=== PATIENT | male | born 1945 | race Hispanic/Latino ===

== ENCOUNTER 2024-06-26 17:57 | Inpatient (IN) | payer OTHER ==
--- OUTSIDE RECORDS SUMMARY | 2024-06-26 18:00 | XMS REPORT | Continuity of Care Document ---
Author Name Unknown Address [address] [facility] [address] [place] [address] [facility] Address [address] [facility] 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 Ordering Clinician Indication Dosage Frequency Signature (SIG) Comments Components Source Omeprazole 20 MG Omeprazole 20 MG No Omeprazole 20 MG Encounters Start Date/Time End Date/Time Encounter Type Admission Type Attending Clinicians Care Facility Care Department Encounter ID Source 2024-02-13 11:32:00 Outpatient Nimesh Monroe [facility] [id number] [facility] 2024-01-19 11:27:02 Outpatient Nimesh Monroe [facility] [id number] [facility] [employer] 2024-03-29 00:00:00 2024-03-29 00:00:00 Office Visit- Est Pt.- Level 3 [facility] [id number] [facility] [employer] 2024-03-08 00:00:00 2024-03-08 00:00:00 (F/U) Follow Up Visit [facility] [id number] [facility] [employer] [employer] 2024-02-21 00:00:00 2024-02-21 00:00:00 (F/U) Follow Up Visit [facility] [id number] [facility] [employer] [employer] 2024-02-02 00:00:00 2024-02-02 00:00:00 (F/U) Follow Up Visit [facility] [id number] [employer] [facility] [employer] 2024-01-19 00:00:00 2024-01-19 00:00:00 Office Visit- New Pt.- Level 4 [facility] [id number] [facility] [employer] [facility]
--- NOTE | 2024-06-26 18:28 | RAD REPORT ---
EXAM: Chest Single View HISTORY: COUGH COMPARISON: None. FINDINGS: LUNGS/PLEURA: The lungs are clear. No pleural effusions or pneumothorax. No pulmonary edema. MEDIASTINUM: Hiatal hernia. CARDIAC: The cardiac silhouette is within normal limits. UPPER ABDOMEN: No significant abnormality. BONES: No acute abnormality. LINES/TUBES/OTHER: N/A IMPRESSION: No evidence of acute cardiopulmonary disease.
[2024-06-26 18:41] LABS: Absolute Basophils 0.1 K/uL (0-0.5); Absolute Eosinophils 0.1 K/uL (0-0.5); Absolute Monocytes 0.9 K/uL (0.1-1.3); Absolute Neutrophil 4.9 K/uL (1.8-8.0); Eosinophils % 1.5 % (0-4.4); Hematocrit 45.5 % (39.6-49.0); Hemoglobin 15.8 g/dL (13.6-17.9); MCH 32.4 pg (27.0-35.0); MCHC 34.8 g/dL (32.0-36.0); MCV 93.3 fL (80-100); Monocytes % 10.9 % (3.3-12.3); Neutrophils % 61.6 % (41.7-73.7); Nucleated Red Blood Cells % 0.1 % (0-0); Platelets 206 thou/uL (152-406); RBC Red Blood Cell Count 4.88 M/uL (4.33-5.43); Red Cell Distribution Width 12.9 % (12.1-15.2)
[2024-06-26 18:46] LABS: PT Prothrombin Time 11.6 SECONDS (9.4-12.5); PTT, Activated Partial Thromb 34.2 SECONDS (24.3-36.9); Protime INR 1.11
[2024-06-26 18:54] LABS: Anion Gap 9.8 mEq/L (5.0-15.0); Potassium 3.8 mEq/L (3.5-5.1); Troponin High Sensitivity 4.4 pg/mL (<58.9)
[2024-06-26 19:02] LABS: Specific Gravity 1.018 (1.005-1.030); Sqamous Epithelial None Seen /HPF (None Seen); Urine Bacteria None Seen /HPF (<20); Urine Bilirubin NEGATIVE (Negative); Urine Blood Negative (Negative); Urine Clarity Clear (Clear); Urine Color Light-Yellow (Yellow); Urine Culture Reflex Order NOT NEEDED; Urine Glucose NEGATIVE (Negative); Urine Ketones NEGATIVE (Negative); Urine Micro Reflex YN NO BILL MICROSCOPIC; Urine Mucus Slight /HPF (None Seen); Urine Nitrite NEGATIVE (Negative); Urine Protein NEGATIVE (Negative); Urine RBC <5 /HPF (None Seen); Urine Urobilinogen Normal (Normal); Urine WBC <5 /HPF (<5)
--- NOTE | 2024-06-26 19:35 | RAD REPORT ---
EXAMINATION: CT HEAD WITHOUT CONTRAST CLINICAL INDICATION: Male, 78 years old.L sided numbness TECHNIQUE: Axial CT images from the skull base to the vertex without intravenous contrast. Coronal an d sagittal reformatted images were created from the data set. One or more of the following dose reduction techniques were used: Automated exposure control, adjustment of the mA and/or kV according to patient size, and/or iterative reconstruction. Unless otherwise specified, incidental findings do not require dedicated imaging follow-up. [id number]. COMPARISON: No prior exam. FINDINGS: INTRACRANIAL: No acute intracranial hemorrhage. No hydrocephalus. Septal malacia in left frontal lobe likely from remote infarct. Mild chronic small vessel ischemic changes.Mild cerebral atrophy. There are some low-density foci within the cerebellar hemispheres which may represent remote infarcts . VASCULATURE: No visualized abnormalities in the arteries or dural venous sinuses. SCALP/SKULL: No significant soft tissue or osseous abnormalities. SINUSES: The visualized paranasal sinuses and mastoid air cells are predominantly clear. IMPRESSION: No acute intracranial abnormality. Remote appearing left frontal lobe infarct. Small foci of hypoatte nuation in the cerebellar hemisphere likely remote infarcts. MRI could confirm.
--- NOTE | 2024-06-26 19:37 | RAD REPORT ---
EXAMINATION: CTA NECK CLINICAL INDICATION: Male, 78 years old. L sided numbness TECHNIQUE: Axial CT images were obtained from the aortic arch to the skull base after intravenous con trast utilizing angiographic protocol with 3D post-processing (maximum intensity projection images, volume rendered images and/or shaded surface rendered images). One or more of the following dose redu ction techniques were used: Automated exposure control, adjustment of the mA and/or kV according to patient size, and/or iterative reconstruction. Unless otherwise specified, incidental findings do not require dedicated imaging follow-up. [id number]. NASCET criteria used. Mild 0-49% stenosis Moderate 50-69% stenosis Severe 70-99% stenosis COMPARISON: No prior exam. FINDINGS: AORTA: The imaged aortic arch is normal. CCA: The common carotid arteries are patent and normal in caliber. ICA/ECA: Bilateral internal and external carotid arteries are patent. There is no significant interna l carotid artery stenosis. Where applicable, degree of stenosis is measured using NASCET-like criteria. VERTEBRAL: Patent. Right dominant. SOFT TISSUE: No significant neck soft tissue abnormalities. The visualized lung apices are clear. 3D images confirm these findings. IMPRESSION: No stenosis or dissection identified within the neck.
--- NOTE | 2024-06-26 19:40 | RAD REPORT ---
EXAMINATION: CTA HEAD CLINICAL INDICATION: Male, 78 years old. L sided numbness TECHNIQUE: Axial CT images were obtained through the head after intravenous contrast utilizing angiog raphic protocol with 3D post-processing (maximum intensity projection images, volume rendered images and/or shaded surface rendered images). One or more of the following dose reduction technique s were used: Automated exposure control, adjustment of the mA and/or kV according to patient size, and/or iterative reconstruction. Unless otherwise specified, incidental findings do not require dedic ated imaging follow-up. COMPARISON: No prior exam. FINDINGS: ICA: The petrous, cavernous, and supraclinoid segments of the bilateral internal carotid arteries are normal. The ophthalmic artery origins are visualized and normal. The posterior communicating arteries are patent. YEMI: Anterior cerebral arteries are normal bilaterally. The anterior communicating artery is patent. MCA: Middle cerebral arteries are normal bilaterally. ROAD HOGGER OPERATOR: Posterior cerebral arteries are normal bilaterally. Vertebrobasilar: The vertebral arteries are patent. The basilar artery is normal in appearance. Right dominant vertebral artery. 3D images confirm these findings. IMPRESSION: No occlusion, aneurysm, or hemodynamically significant stenosis identified.
[2024-06-26] MEDS ORDERED: ASPIRIN 81 MG CHEWABLE TABLET ONE (19:45)
--- NOTE | 2024-06-26 19:46 | EDPHYS ---
Physician Documentation [facility] Name: Nixon Currie Age: 78 yrs Sex: Male : 1945 Arrival Date: 06/26/2024 Time: 17:57 Bed 13 Private MD: ED Physician Sunny Brambila HPI: 06/26 18:21 This 78 yrs old Male presents to ER via Ambulatory with complaints of Fall ec2 Injury, Numbness Of Arm - Left. 18:21 Patient arrives today for evaluation of left upper and left lower extremity numbness. ec2 Last known well of last night. Woke up this morning, states that he felt numb in the left lower extremity and had fallen down. No LOC, no head strike, no head pain, no neck pain. No significant medical problems, no cardiac history. No previous stroke history. Not on blood thinners. Reports that he feels back to near baseline.. Historical: - Allergies: 18:14 No Known Allergies; cm10 - PMHx: 18:14 None; cm10 - PSHx: 18:14 Cholecystectomy; cm10 - Immunization history:: Adult Immunizations up to date. - Infectious Disease History:: Denies. - Social history:: Smoking status: Patient denies any tobacco usage or history of. ROS: 18:21 Constitutional: as per hpi ec2 Exam: 18:21 Constitutional: GEN: NAD Head: atraumatic Eyes: EOMI Ears: External ears are ec2 normal. CV: regular rate LUNGS: no respiratory distress ABD: non-distended SKIN: no evidence of rashes MSK: no evidence of trauma. Neuro: Cranial nerves II through XII intact, strength intact all 4 extremities, sensation intact throughout. Vital Signs: 18:12 BP 142 / 73; Pulse 63; Resp 15; Temp 97.4(O); Pulse Ox 96% on R/A; Weight 79.38 kg; cm10 Height 5 ft. 7 in. ; Pain 0/10; 18:30 BP 125 / 80; Pulse 68; Resp 16; Pulse Ox 99% ; me1 19:00 BP 122 / 73; Pulse 58; Resp 15; Pulse Ox 94% ; me1 20:00 BP 130 / 80; Pulse 54; Resp 15; Pulse Ox 96% on R/A; me1 21:00 BP 124 / 83; Pulse 52; Resp 15; Pulse Ox 95% ; me1 22:00 BP 133 / 77; Pulse 56; Resp 17; Pulse Ox 94% ; me1 23:00 BP 127 / 79; Pulse 51; Resp 15; Pulse Ox 97% ; me1 18:12 Body Mass Index 27.41 (79.38 kg, 170.18 cm) cm10 18:12 Pain Scale: Adult cm10 NIH Stroke Scale Scores: 18:10 NIHSS Score: 0 [facility] MDM: 18:04 Medical Screening Exam initiated ec2 18:22 Data reviewed: vital signs, nurses notes. ED course: Patient arrives today for ec2 evaluation of left upper and lower extremity numbness. Examination yields well-appearing nontoxic individuals otherwise in no acute distress with a reassuring examination without focal deficits appreciated. Will obtain cardiac workup as well as neurological workup. Patient would not be an appropriate TNK candidate given the patient's timeframe and improved symptoms.. 19:02 ED course: EKG independently reviewed and interpreted by me, shows normal sinus rhythm, ec2 rate of 55, no acute ST segment elevations, intervals are nonactionable.. 19:17 ED course: Metabolic profile reassuring. CBC reassuring. Coagulation profile is ec2 nonactionable, troponin is within normal ranges. Chest x-ray shows no acute intrathoracic process. Urine is noninfectious appearing. Pending CT imaging.. 19:45 ED course: CT angio and CT neck are negative. CT scan of the head shows remote left ec2 frontal lobe infarct along with hypoattenuation in the cerebellar hemisphere. Given the patient's symptoms, I suspect these are consistent with stroke. Will admit for neurology and further MR. Discussed with hospitalist, pending admission.. 06/26 18:12 Order name: Basic Metabolic Panel; Complete Time: 19:17 ec2 06/26 18:12 Order name: CBC with Diff; Complete Time: 19:17 ec2 06/26 18:12 Order name: PT-INR; Complete Time: :17 ec2 06/26 18:12 Order name: Troponin HS; Complete Time: :17 ec2 06/26 18:12 Order name: Ptt, Activated; Complete Time: 19:17 ec2 06/26 18:12 Order name: UAM; Complete Time: : ec2 06/26 22:00 Order name: CBC with Automated Diff EDMS 06/26 22:00 Order name: CBC with Automated Diff; Complete Time: 14:03 EDMS 06/26 22:00 Order name: Comprehensive Metabolic Panel EDIN 06/26 22:00 Order name: Comprehensive Metabolic Panel; Complete Time: 14:03 EDMS 06/26 22:00 Order name: Lipid Profile EDMS 06/26 22:00 Order name: Lipid Profile; Complete Time: 14:03 MS 06/26 22:47 Order name: Glucose, Ancillary Testing; Complete Time: 14:03 [facility] 06/27 06:35 Order name: Hemoglobin A1c; Complete Time: 14:03 EDMS 06/27 07:27 Order name: Glucose, Ancillary Testing; Complete Time: 14:03 [facility] 06/26 18:12 Order name: XRAY Chest (1 view); Complete Time: 19:17 ec2 06/26 18:12 Order name: CT Head Angio; Complete Time: 19:43 2 06/26 18:12 Order name: CT Neck Angio; Complete Time: 19:40 2 06/26 18:12 Order name: CT Head Brain wo Cont; Complete Time: 19:40 ec2 06/26 22:00 Order name: Brain Wo Cont EDIN 06/26 22:01 Order name: Echo with Doppler EDIN 06/27 12:14 Order name: MRI; Complete Time: 14:03 [facility] 06/26 18:12 Order name: EKG; Complete Time: 18:13 ec2 06/26 22:00 Order name: IRF Screen EDIN 06/26 22:00 Order name: Physical Therapy Consult EDIN 06/26 18:12 Order name: Cardiac monitoring; Complete Time: 19:01 2 06/26 18:12 Order name: EKG - Nurse/Tech; Complete Time: 19:01 2 06/26 18:12 Order name: IV Saline Lock; Complete Time: 18:52 ec2 06/26 18:12 Order name: Labs collected and sent; Complete Time: 18:52 ec2 06/26 18:12 Order name: O2 Per Protocol; Complete Time: 18:52 ec2 06/26 18:12 Order name: O2 Sat Monitoring; Complete Time: 18:52 ec2 Administered Medications: 19:52 Drug: Aspirin PO Chewable Tablet 324 mg PO once; 81 mg tablets x 4 Route: PO; me1 19:58 Follow up: Response: No adverse reaction me1 Disposition Summary: 06/26/24 19:45 Hospitalization Ordered Notes: Hospitalization Status: Inpatient Admission ec2 Provider: Wagner Gandara ec2 Condition: Stable ec2 Problem: new ec2 Symptoms: are unchanged ec2 Bed/Room Type: Standard ec2 Location: Telemetry/MedSurg (observation)(06/27/24 14:02) 6 Room Assignment: [facility](06/27/24 14:02) [facility] Diagnosis - Ischemic Stroke ec2 Discharge Instructions: - Discharge Summary Sheet me1 Forms: - Medication Reconciliation Form ec2 - SBAR form ec2 - Leadership Thank You Letter ec2 NIH Stroke Scale - NIH Stroke Score Date: 06/26/2024 Time: 18:10 Total Score = 0 10. Dysarthria (speech clarity - read or repeat words) - 0(Normal) 11. Extinction and Inattention (visual/tactile/auditory/spatial/personal) - 0(No abnormality) 1a. Level of Consciousness (LOC) - 0(Alert) 1b. Level of Consciousness (LOC) (Month \T\ Age) - 0(Both) 1c. LOC Commands (Open \T\ Closes Eyes/Mail Reader) - 0(Both) 2. Best Gaze (Lateral Gaze Paresis) - 0(Normal) 3. Visual Field Loss - 0(No visual loss) 4. Facial Palsy - 0(Normal) 5a. Left Arm: Motor (10-second hold) - 0(No drift) 5b. Right Arm: Motor (10-second hold) - 0(No drift) 6a. Left Leg: Motor (5-second hold - always test supine) - 0(No drift) 6b. Right Leg: Motor (5-second hold - always test supine) - 0(No drift) 7. Limb Ataxia (finger/nose \T\ heel/aldrcih - test with eyes open) - 0(Absent) 8. Sensory Loss (pinprick arms/legs/face) - 0(Normal) 9. Best Language: Aphasia (description/naming/reading) - 0(No aphasia) Initials: me1 Signatures: Dispatcher [employer] Mayte Nowak rv1 Melinda Bright 6 Meenu Connelly RN RN cm10 Aimee Hale RN RN me1 Sunny Brambila MD MD 2 Corrections: (The following items were deleted from the chart) 18:21 18:21 Patient arrives today for evaluation of left upper and left lower ec2 extremity numbness. Last known well of last night. Woke up this morning, states that he felt numb in the left lower extremity and had fallen down. No LOC, no head strike, no head pain, no neck pain. No significant medical problems, no cardiac history. No previous stroke history. Not on blood thinners.. ec2 19:50 19:45 Telemetry/MedSurg (Inpatient) ec2 rv1 19:50 19:45 ec2 rv1 06/27 14:02 06/26 19:50 [facility] ER HOLD rv1 6 06/27 14:02 06/26 19:50 ERHOLD- [facility]
--- NOTE | 2024-06-26 19:46 | ER ---
Nurse's Notes [facility] Name: Nixon Currie Age: 78 yrs Sex: Male : 1945 Arrival Date: 06/26/2024 Time: 17:57 Bed 13 Private MD: Diagnosis: Ischemic Stroke Presentation: 06/26 18:12 Chief complaint: Patient states: Woke up this morning and his left arm and left leg cm10 went numb and patient fell. Pt states that the numbness has resolved. Coronavirus screen: Client denies travel out of the [place] in the last 14 days. Ebola Screen: Patient denies travel to an Ebola-affected area in the 21 days before illness onset. Initial Sepsis Screen: Does the patient meet any 2 criteria? No. Patient's initial sepsis screen is negative. Does the patient have a suspected source of infection? No. Patient's initial sepsis screen is negative. Risk Assessment: Do you want to hurt yourself or someone else? Patient reports no desire to harm self or others. Onset of symptoms was June 26, 2024. 18:12 Method Of Arrival: Ambulatory cm10 18:12 Acuity: NI 3 cm10 Triage Assessment: 18:14 General: Appears in no apparent distress. comfortable, Behavior is calm, cooperative, cm10 appropriate for age. Pain: Denies pain. Neuro: No deficits noted. Level of Consciousness is awake, alert, obeys commands, Oriented to person, place, time, situation, Appropriate for age. Respiratory: No deficits noted. Airway is patent Respiratory effort is even, unlabored, Respiratory pattern is regular, symmetrical. Historical: - Allergies: 18:14 No Known Allergies; cm10 - PMHx: 18:14 None; cm10 - PSHx: 18:14 Cholecystectomy; cm10 - Immunization history:: Adult Immunizations up to date. - Infectious Disease History:: Denies. - Social history:: Smoking status: Patient denies any tobacco usage or history of. Screenin:10 [facility] ED Fall Risk Assessment (Adult) History of falling in the last 3 months, me1 including since admission No falls in past 3 months (0 pts) Confusion or Disorientation No (0 pts) Intoxicated or Sedated No (0 pts) Impaired Gait No (0 pts) Mobility Assist Device Used No (0 pt) Altered Elimination No (0 pt) Score/Fall Risk Level 0 - 2 = Low Risk Maintained a safe environment, Provided non-skid footwear, Hourly rounding (assess needs \T\ fall precautionary measures) done. Abuse screen: Denies threats or abuse. Nutritional screening: No deficits noted. Tuberculosis screening: No symptoms or risk factors identified. 18:10 [place] Swallow Protocol Exclusion Criteria: Unable to remain alert for testing: No NPO me1 for medical/surgical reason by provider order No Head-of-bed restricted <30 degrees Tracheostomy tube present No No thin liquids due to preexisting dysphagia/baseline modified diet thickened liquids No Exclusion Criteria Result: Proceed Brief Cognitive Screen What is your name? Normal, Where are you right now? Normal, What year is it? Normal. Oral Mechanism Examination Facial Symmetry: Normal, Motion: Normal, Lip Closure: Normal, Oral Mechanism Result: Normal. 3 oz Water Swallow Challenge: Pt able to drink all water without stopping, coughing, choking or throat clearing: Yes Result: PASS MD Notified: Sunny Brambila MD. Assessment: 18:10 General: Appears comfortable, well groomed, well developed, well nourished, Behavior is me1 calm, cooperative, appropriate for age, Reports Woke up this morning and his left arm and left leg went numb and patient fell. Pt states that the numbness has resolved. Pain: Denies pain. Neuro: Level of Consciousness is awake, alert, obeys commands, Oriented to person, place, time, situation, Appropriate for age Song [employer]ger are equal bilaterally Moves all extremities. Full function Gait is steady, Speech is normal, Facial symmetry appears normal, Pupils are PERRLA, Intact. Cardiovascular: Patient's skin is warm and dry. Respiratory: Airway is patent Respiratory effort is even, unlabored, Respiratory pattern is regular, symmetrical. GI: No signs and/or symptoms were reported involving the gastrointestinal system. : No signs and/or symptoms were reported regarding the genitourinary system. EENT: No signs and/or symptoms were reported regarding the EENT system. Derm: Skin is intact, is healthy with good turgor, Skin is pink, warm \T\ dry. Musculoskeletal: No signs and/or symptoms reported regarding the musculoskeletal system. Vital Signs: 18:12 BP 142 / 73; Pulse 63; Resp 15; Temp 97.4(O); Pulse Ox 96% on R/A; Weight 79.38 kg; cm10 Height 5 ft. 7 in. ; Pain 0/10; 18:30 BP 125 / 80; Pulse 68; Resp 16; Pulse Ox 99% ; me1 19:00 BP 122 / 73; Pulse 58; Resp 15; Pulse Ox 94% ; me1 20:00 BP 130 / 80; Pulse 54; Resp 15; Pulse Ox 96% on R/A; me1 21:00 BP 124 / 83; Pulse 52; Resp 15; Pulse Ox 95% ; me1 22:00 BP 133 / 77; Pulse 56; Resp 17; Pulse Ox 94% ; me1 23:00 BP 127 / 79; Pulse 51; Resp 15; Pulse Ox 97% ; me1 18:12 Body Mass Index 27.41 (79.38 kg, 170.18 cm) cm10 18:12 Pain Scale: Adult cm10 NIH Stroke Scale Scores: 18:10 NIHSS Score: 0 mt1 ED Course: 18:02 Patient arrived in ED. ec2 18:02 Sunny Brambila MD is Attending Physician. ec2 18:10 Patient has correct armband on for positive identification. Bed in low position. Call [facility] [place] in reach. Side rails up X2. Provided Education on: POC. Verbalized understanding.. Client placed on continuous cardiac and pulse oximetry monitoring. NIBP monitoring applied. nurse monitoring on. Pulse ox on. NIBP on. 18:10 No provider procedures requiring assistance completed. me1 18:11 Aimee Hale, RN is Primary Nurse. mt1 18:14 Triage completed. cm10 18:14 Arm band placed on right wrist. Patient placed in an exam room, on a stretcher. cm10 18:21 XRAY Chest (1 view) In Process Unspecified. EDMS 18:30 Initial lab(s) drawn, by mt, sent to lab. Inserted saline lock: 20 gauge in right mt1 antecubital area, using aseptic technique. 18:51 Radiology exam delayed due to lab results not completed at this time. (BUN/Creatinine). de 18:52 UAM Sent. mt1 18:52 Basic Metabolic Panel Sent. mt1 18:52 Troponin HS Sent. mt1 18:52 Urine collected: clean catch specimen, clear. mt1 19:02 EKG done, by ED staff, reviewed by Sunny Brambila MD. me1 19:29 CT Head Angio In Process Unspecified. EDMS 19:29 CT Neck Angio In Process Unspecified. EDMS 19:29 CT Head Brain wo Cont In Process Unspecified. EDMS 19:45 Wagner Gandara MD is Hospitalizing Provider. ec2 23:17 Patient admitted, IV remains in place. me1 Administered Medications: 19:52 Drug: Aspirin PO Chewable Tablet 324 mg PO once; 81 mg tablets x 4 Route: PO; me1 19:58 Follow up: Response: No adverse reaction me1 Medication: 18:10 VIS not applicable for this client. me1 Outcome: 19:45 Decision to Hospitalize by Provider. ec2 23:17 Admitted to ER Hold. [facility]. me1 23:17 Condition: stable 23:17 Instructed on the need for admit, 06/27 14:58 Patient left the ED. cm10 NIH Stroke Scale - NIH Stroke Score Date: 06/26/2024 Time: 18:10 Total Score = 0 10. Dysarthria (speech clarity - read or repeat words) - 0(Normal) 11. Extinction and Inattention (visual/tactile/auditory/spatial/personal) - 0(No abnormality) 1a. Level of Consciousness (LOC) - 0(Alert) 1b. Level of Consciousness (LOC) (Month \T\ Age) - 0(Both) 1c. LOC Commands (Open \T\ Closes Eyes/Website Programmer) - 0(Both) 2. Best Gaze (Lateral Gaze Paresis) - 0(Normal) 3. Visual Field Loss - 0(No visual loss) 4. Facial Palsy - 0(Normal) 5a. Left Arm: Motor (10-second hold) - 0(No drift) 5b. Right Arm: Motor (10-second hold) - 0(No drift) 6a. Left Leg: Motor (5-second hold - always test supine) - 0(No drift) 6b. Right Leg: Motor (5-second hold - always test supine) - 0(No drift) 7. Limb Ataxia (finger/nose \T\ heel/aldrich - test with eyes open) - 0(Absent) 8. Sensory Loss (pinprick arms/legs/face) - 0(Normal) 9. Best Language: Aphasia (description/naming/reading) - 0(No aphasia) Initials: me1 Signatures: Dispatcher [employer] EDMS Jeff Marcus Clarissa, RN RN cm10 Aimee Hale RN RN me1 Sunny Brambila MD MD ec2 Corrections: (The following items were deleted from the chart) 06/26 19:52 18:12 Chief complaint: Patient states: Woke up this morning and his left arm me1 and left leg went numb and patient fell. Pt states that the numbness has resolved. cm10
[2024-06-26] MEDS ORDERED: ACETAMINOPHEN 500 MG TAB PO PRN (21:54)
[2024-06-26] MEDS ORDERED: ONDANSETRON 4 MG/2 ML VIAL IV PRN (21:54)
--- NOTE | 2024-06-26 21:54 | P.HP ---
Certification for Inpatient Patient admitted to: Observation With expected LOS: <2 Midnights Practitioner: I am a practitioner with admitting privileges, knowledge of patient current condition, hospital course, and medical plan of care. Services: Services provided to patient in accordance with Admission requirements found in Title 42 Section 412.3 of the Code of Federal Regulations Patient History Date of Service: 06/26/24 Reason for admission: Left side numbness History of Present Illness: 78 yrs old Male with no significant past medical history other than GERD brought to ER with numbness and weakness of the left side of the ER body which started last night. Denies any chest pain or palpitations. No fever or chills. No nausea vomiting diarrhea. Patient noticed numbness of the left thumb which progressed to left side of the body. Denies any headache. No previous history of CAD or CVA or atrial fibrillation. Patient was assessed in the ER and is admitted for further management of possible CVA to rule out Allergies No Known Allergies Allergy (Unverified 06/26/24 21:29) Home medications list reviewed: Yes - Family History Family History: Reviewed- Non-Contributory - Social History Smoking Status: Never smoker Review of Systems 10-point ROS is otherwise unremarkable Physical Examination - Vital Signs Temperature: 98.2 F Blood Pressure: 132/70 Pulse: 88 Respirations: 18 Pulse Ox (%): 94 - Physical Exam General: Alert, In no apparent distress, Oriented x3 HEENT: Atraumatic, Normocephalic Neck: Supple, 2+ carotid pulse no bruit Respiratory: Clear to auscultation bilaterally, Normal air movement Cardiovascular: Regular rate/rhythm, Normal S1 S2 Capillary refill: <2 Seconds Gastrointestinal: Soft and benign, Non-distended, W/out hepatosplenomegaly Musculoskeletal: No clubbing, No swelling Integumentary: No rashes, No breakdown Neurological: Normal gait, Normal speech, Normal strength at 5/5 x4 extr, Cranial nerves 3-12 intact, Normal reflexes 2+, Normal affect Lymphatics: No axilla or inguinal lymphadenopathy - Studies Laboratory Data (last 24 hrs) 06/26/24 06/26/24 06/26/24 18:25 18:25 18:25 WBC 8.00 Hgb 15.8 Hct 45.5 Plt Count 206 PT 11.6 INR 1.11 APTT 34.2 Sodium 138 Potassium 3.8 BUN 18 Creatinine 1.10 Glucose 115 H Assessment and Plan - Plan CVA/TIA No focal weakness Numbness of left-sided body Started on aspirin and statin CT CTA findings noted MRI brain ordered Monitor neuro vital signs Monitor under telemetry Will get a neurology evaluation We will get a stroke workup GI/DVT prophylaxis Advanced directive full code Discharge Plan: Home Plan to discharge in: 48 Hours - Advance Directives Does patient have a Living Will: No Does patient have a Durable POA for Healthcare: No - Code Status/Comfort Care Code Status: Full Code Time Spent Managing Pts Care (In Minutes): 48
[2024-06-26 22:38] VITALS: BMI 27.3
[2024-06-27 04:43] LABS: Absolute Basophils 0.1 K/uL (0-0.5); Absolute Eosinophils 0.2 K/uL (0-0.5); Absolute Lymphocytes (CBC) 2.7 K/uL (0.7-4.9); Absolute Monocytes 0.7 K/uL (0.1-1.3); Absolute Neutrophil 4.5 K/uL (1.8-8.0); Basophils % 0.9 % (0-1.3); Hematocrit 44.3 % (39.6-49.0); Hemoglobin 16.1 g/dL (13.6-17.9); MCH 33.2 pg (27.0-35.0); MCHC 36.3 g/dL (32.0-36.0); MCV 91.4 fL (80-100); MPV 8.2 fL (7.6-11.3); Neutrophils % 55.1 % (41.7-73.7); Platelets 183 thou/uL (152-406); RBC Red Blood Cell Count 4.85 M/uL (4.33-5.43)
[2024-06-27 05:01] LABS: Albumin 3.5 g/dL (3.4-5.0); Albumin/Globulin Ratio 1.1 (1.1-1.8); Anion Gap 8.1 mEq/L (5.0-15.0); Bilirubin Total 1.7 mg/dL (0.2-1.0); Globulin 3.3 g/dL (2.3-3.5); Potassium 4.1 mEq/L (3.5-5.1); Protein, Total 6.8 g/dL (6.4-8.2)
[2024-06-27] MEDS: ASPIRIN EC 81 MG TAB PO SCH (09:00)
[2024-06-27] MEDS ORDERED: ASPIRIN 81 MG CHEWABLE TABLET ONE (09:58)
--- NOTE | 2024-06-27 12:05 | RAD REPORT ---
EXAMINATION: MRI BRAIN WITHOUT CONTRAST CLINICAL INDICATION: CVA. Left arm numbness TECHNIQUE: Multiplanar multisequence MR images of the brain were obtained without intravenous contras t. Unless otherwise specified, incidental findings do not require dedicated imaging follow-up. 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 Ventricles are normal caliber. No extra-axial fluid collection. No fluid within the sinuses/mastoid seen IMPRESSION: 6 mm acute infarction right cerebrum
[2024-06-27 16:15] VITALS: O2SAT 97
[2024-06-27] MEDS: ATORVASTATIN 20 MG TAB PO SCH (20:17)
[2024-06-28 05:55] LABS: Absolute Basophils 0.1 K/uL (0-0.5); Absolute Eosinophils 0.1 K/uL (0-0.5); Absolute Lymphocytes (CBC) 2.3 K/uL (0.7-4.9); Absolute Monocytes 0.8 K/uL (0.1-1.3); Absolute Neutrophil 4.5 K/uL (1.8-8.0); Basophils % 1.2 % (0-1.3); Eosinophils % 1.7 % (0-4.4); Hematocrit 45.4 % (39.6-49.0); Hemoglobin 15.9 g/dL (13.6-17.9); Lymphocytes % 29.1 % (15.3-44.8); MCH 32.5 pg (27.0-35.0); MCV 92.9 fL (80-100); MPV 8.2 fL (7.6-11.3); Monocytes % 9.7 % (3.3-12.3); Neutrophils % 58.3 % (41.7-73.7); Platelets 176 thou/uL (152-406); RBC Red Blood Cell Count 4.88 M/uL (4.33-5.43); Red Cell Distribution Width 12.7 % (12.1-15.2)
[2024-06-28 06:14] LABS: Albumin 3.1 g/dL (3.4-5.0); Anion Gap 7.2 mEq/L (5.0-15.0); Magnesium 2.1 mg/dL (1.6-2.4); Phosphorus 2.3 mg/dL (2.5-4.9); Potassium 4.2 mEq/L (3.5-5.1)
[2024-06-28 12:54] VITALS: BP 141/75; TEMP 97.5
--- NOTE | 2024-06-28 12:59 | EKG ---
Test Date: 2024-06-26 Test Time: 18:59:04 Plan Checker: MEASUREMENT RESULTS: Intervals: Rate: 55 MN: 192 QRSD: 84 QT: 432 QTc: 413 [place]: P: 28 MN: 192 QRS: 34 T: 23 INTERPRETIVE STATEMENTS: Sinus bradycardia Nonspecific ST and T wave abnormality Abnormal ECG Compared to ECG 09/28/2010 14:44:19 ST (T wave) deviation now present Electronically Signed On 06-28-24 12:58:14 ASSISTANT FACILITY MANAGER by Beny Levine
[2024-06-28] MEDS ORDERED: ASPIRIN 81 MG CHEWABLE TABLET PO ONE (13:32)
[2024-06-28] MEDS: CLOPIDOGREL 75 MG TABLET PO SCH (13:37)
[2024-06-28] MEDS: ASPIRIN 81 MG CHEWABLE TABLET PO ONE (13:37)
[2024-06-28] MEDS: FOLIC ACID 1 MG TABLET PO SCH (13:37)
[2024-06-28] MEDS ORDERED: ENOXAPARIN 40 MG/0.4 ML SQ ONE (13:42)
--- NOTE | 2024-06-28 14:09 | ECHO ---
HEIGHT: 5 ft 7 in WEIGHT: 175 lb 0.047 oz DATE OF STUDY: 06/27/[address]: Gaudencio Gandara 2-DIMENSIONAL: YES M.MODE: YES DOPPLER: YES COLOR FLOW: YES TDS: NO PORTABLE: YES DEFINITY: NO BUBBLE STUDY: NO DIAGNOSIS: CEREBRAL VASCULAR ACCIDENT CARDIAC HISTORY: CATHERIZATION: NO SURGERY: NO PROSTHETIC VALVE: NO PACEMAKER: NO MEASUREMENTS (cm) DIASTOLIC (NORMALS) SYSTOLIC (NORMALS) IVSd 1.0 (0.6-1.2) LA Diam 3.7 (1.9-4.0) LVEF 60-65% LVIDd 4.2 (3.5-5.7) LVIDs 2.7 (2.0-3.5) %FS 35% LVPWd 1.0 (0.6-1.2) Ao Diam 2.9 (2.0-3.7) 2 DIMENSIONAL ASSESSMENT: RIGHT ATRIUM: NORMAL LEFT ATRIUM: NORMAL RIGHT VENTRICLE: NORMAL LEFT VENTRICLE: NORMAL TRICUSPID VALVE: TRACE TRICUSPID REGURGITATION MITRAL VALVE: NORMAL PULMONIC VALVE: NORMAL AORTIC VALVE: TRACE AORTIC REGURGITATION PERICARDIAL EFFUSION: NONE AORTIC ROOT: NORMAL LEFT VENTRICULAR WALL MOTION: NORMAL. DOPPLER/COLOR FLOW: GRADE I DIASTOLIC DYSFUNCTION. COMMENTS: 1. NORMAL LEFT VENTRICULAR SYSTOLIC FUNCTION. LEFT VENTRICULAR EJECTION FRACTION 60-65%. NORMAL WALL MOTION. 2. GRADE I DIASTOLIC DYSFUNCTION. 3. TRACE AORTIC REGURGITATION. TECHNOLOGIST: MARY CRESPO
--- NOTE | 2024-06-28 16:41 | P.DS ---
Admission Date: 06/27/24 Discharge Date: 06/28/24 Disposition: ROUTINE DISCHARGE Discharge Condition: GOOD Reason for Admission: Left side numbness Brief History of Present Illness: 78 yrs old Male with no significant past medical history other than GERD brought to ER with numbness and weakness of the left side of the ER body which started last night. Denies any chest pain or palpitations. No fever or chills. No nausea vomiting diarrhea. Patient noticed numbness of the left thumb which progressed to left side of the body. Denies any headache. No previous history of CAD or CVA or atrial fibrillation.Patient was assessed in the ER and is admitted for further management of possible CVA to rule out - Physical Exam General: Alert, In no apparent distress, Oriented x3 HEENT: Atraumatic, Normocephalic Neck: Supple, 2+ carotid pulse no bruit Respiratory: Clear to auscultation bilaterally, Normal air movement Cardiovascular: Regular rate/rhythm, Normal S1 S2 Capillary refill: <2 Seconds Gastrointestinal: Soft and benign, Non-distended, W/out hepatosplenomegaly Musculoskeletal: No clubbing, No swelling Integumentary: No rashes, No breakdown Neurological: Normal gait, Normal speech, Normal strength at 5/5 x4 extr, Cranial nerves 3-12 intact, Normal reflexes 2+, Normal affect Lymphatics: No axilla or inguinal lymphadenopathy Hospital Course: 78 yrs old Male with no significant past medical history other than GERD brought to ER with numbness and weakness of the left side of the ER body which started last night. Denies any chest pain or palpitations. No fever or chills. No nausea vomiting diarrhea. Patient noticed numbness of the left thumb which progressed to left side of the body. Denies any headache. No previous history of CAD or CVA or atrial fibrillation.Patient was assessed in the ER and is admitted for further management of possible CVA. Neurology was consulted, MRI was ordered, patient had a noted stroke, 06/27/24 MRI IMPRESSION: 6 mm acute infarction right cerebrum. Left-sided numbness tingling, resolving, no slurred speech, no gait abnormality. Educated on cholesterol medications, treatment for stroke. Tolerating diet, stable to discharge home, follow-up with neurology after discharge Discharge medication Aspirin 81 mg daily, Plavix 75 mg daily folic acid 1 mg daily Follow-up with Dr. Eller after discharge Assessment Acute stroke 6 mm acute infarction right cerebrum Left-sided paresthesia, numbness, Echocardiogram NORMAL LEFT VENTRICULAR SYSTOLIC FUNCTION. LEFT VENTRICULAR EJECTION FRACTION 60- 65%. NORMAL WALL MOTION. 2. GRADE I DIASTOLIC DYSFUNCTION. 3. TRACE AORTIC REGURGITATION. MRI 06/27/24 MRI IMPRESSION: 6 mm acute infarction right cerebrum. CT of the head No acute intracranial abnormality. Remote appearing left frontal lobe infarct. Small foci of hypoattenuation in the cerebellar hemisphere likely remote infarcts. MRI could confirm. CTA of the head and neck No occlusion, aneurysm, or hemodynamically significant stenosis identified. No stenosis or dissection identified within the neck. GOAL: Clear understanding of disease process INSTRUCTIONS: Physician Discharge Instructions: -Follow-up with Dr. Eller after discharge -Follow-up with PCP in 1 to 2 weeks -Please call Dr. Barrera at [phone] if any questions regarding hospital stay -Please call nursing station at [phone] if any nursing or medication questions -Return to the emergency room if symptoms worsen Diet: ADA, low sodium Activity: Fall precautions Vital Signs/Physical Exam: Temp Pulse Resp BP Pulse Ox 97.5 F 98 H 16 141/75 H 95 06/28/24 12:00 06/28/24 12:00 06/28/24 12:00 06/28/24 12:00 06/28/24 12:00 Laboratory Data at Discharge: WBC 7.70 thou/uL (4.3-10.9) 06/28/24 05:28 Hgb 15.9 g/dL (13.6-17.9) 06/28/24 05:28 Hct 45.4 % (39.6-49.0) 06/28/24 05:28 Plt Count 176 thou/uL (152-406) 06/28/24 05:28 PT 11.6 SECONDS (9.4-12.5) 06/26/24 18:25 INR 1.11 06/26/24 18:25 APTT 34.2 SECONDS (24.3-36.9) 06/26/24 18:25 Sodium 137 mEq/L (136-145) 06/28/24 05:28 Potassium 4.2 mEq/L (3.5-5.1) 06/28/24 05:28 BUN 19 mg/dL (7-18) H 06/28/24 05:28 Creatinine 1.02 mg/dL (0.70-1.30) 06/28/24 05:28 Glucose 101 mg/dL (74-106) 06/28/24 05:28 Phosphorus 2.3 mg/dL (2.5-4.9) L 06/28/24 05:28 Phosphorus 2.4 mg/dL (2.5-4.9) L 06/28/24 05:28 Magnesium 2.1 mg/dL (1.6-2.4) 06/28/24 05:28 Total Bilirubin 1.7 mg/dL (0.2-1.0) H 06/27/24 04:30 AST 18 U/L (15-37) 06/27/24 04:30 ALT 22 U/L (16-61) 06/27/24 04:30 Alkaline Phosphatase 59 U/L (45-117) 06/27/24 04:30 Triglycerides Cancelled 06/27/24 Unknown Cholesterol Cancelled 06/27/24 Unknown HDL Cholesterol Cancelled 06/27/24 Unknown Cholesterol/HDL Ratio Cancelled 06/27/24 Unknown Home Medications: Omeprazole 20 mg PO DIRECTED 06/27/24 Aspirin Chewable [Aspirin Chewable*] 162 mg PO DAILY #60 tab.chew 06/28/24 Clopidogrel Bisulfate [Plavix*] 75 mg PO DAILY #30 tab 06/28/24 Folic Acid 1 mg PO DAILY #30 tab 06/28/24 New Medications: Aspirin Chewable [Aspirin Chewable*] 162 mg PO DAILY #60 tab.chew Folic Acid 1 mg PO DAILY #30 tab Clopidogrel Bisulfate [Plavix*] 75 mg PO DAILY #30 tab Physician Discharge Instructions: -DC IV and DC home -Follow-up with PCP in 1 to 2 weeks -Follow-up with Cardiology in 1 to 2 weeks -Follow-up with Neurology in 2 weeks -Please call Dr. Barrera at [phone] if any questions regarding hospital stay -Please call nursing station at [phone] if any nursing or medication questions -Return to the emergency room if symptoms worsen Diet: AHA Activity: Fall precautions Followup: Nimesh Monroe MD [Primary Care Provider] - Francisco Eller MD [ASSOCIATE-ACTIVE - CAN ADMIT] - Time spent managing pt's care (in minutes): 45
[2024-06-29] MEDS ORDERED: ASPIRIN 81 MG CHEWABLE TABLET PO SCH (09:00)
--- NOTE | 2024-06-29 21:18 | P.PN ---
Date of Service: 06/27/24 subjective Symptoms improving, Review of Systems 10-point ROS is otherwise unremarkable Physical Examination - Vital Signs Reviewed - Physical Exam General: Alert, In no apparent distress, Oriented x3 HEENT: Atraumatic, Normocephalic Neck: Supple, 2+ carotid pulse no bruit Respiratory: Clear to auscultation bilaterally, Normal air movement Cardiovascular: Regular rate/rhythm, Normal S1 S2 Capillary refill: <2 Seconds Gastrointestinal: Soft and benign, Non-distended, W/out hepatosplenomegaly Musculoskeletal: No clubbing, No swelling Integumentary: No rashes, No breakdown Neurological: Normal gait, Normal speech, Normal strength at 5/5 x4 extr, Cranial nerves 3-12 intact, Normal reflexes 2+, Normal affect Lymphatics: No axilla or inguinal lymphadenopathy Assessment and Plan - Plan Acute CVA 6 mm acute infarction right cerebrum Left-sided numbness No focal weakness Numbness of left-sided body Started on aspirin and statin CT CTA findings noted MRI brain ordered Monitor neuro vital signs Monitor under telemetry Will get a neurology evaluation We will get a stroke workup GI/DVT prophylaxis Advanced directive full code Discharge Plan: Home Plan to discharge in: 48 Hours - Advance Directives Does patient have a Living Will: No Does patient have a Durable POA for Healthcare: No - Code Status/Comfort Care Code Status: Full Code Time Spent Managing Pts Care (In Minutes): 35
== END 2024-06-28 16:50 | disposition home or self-care (01) | DRG 66 ==
LOC: ER 17:57 → ERHOLD 21:54 → 2ND 06-27 14:41 → OBSVTOIN 06-27 23:31
PROVIDERS: ADMIT Family Medicine; ATTEND Hospitalist
DX: I63.9 Cerebral infarction, unspecified (principal); K21.9 Gastro-esophageal reflux disease without esophagitis; R20.0 Anesthesia of skin; R29.700 NIHSS score 0; R20.2 Paresthesia of skin; Z90.49 Acquired absence of other specified parts of digestive tract; Z79.82 Long term (current) use of aspirin; Z79.02 Long term (current) use of antithrombotics/antiplatelets; Z79.899 Other long term (current) drug therapy
CPT/HCPCS: 36415; 70450; 70496; 70498; 70551; 71045; 80048; 80053; 80061; 80069; 81001; 82947; 83036; 83735; 84100; 84484; 85025; 85610; 85730; 93005; 93306; 97112; 97161; 99285; G0378; Q9967